=== PATIENT | female | born 1955 | race Caucasian/White ===

== ENCOUNTER 2019-03-04 16:53 | Inpatient (IN) | payer BC, OTHER ==
[~2019-03-04] VITALS: Ht 170.2 cm; Wt 79.2 kg
--- NOTE | 2019-03-04 17:54 | NUR ---
PT HERE [facility] C/O LEFT KNEE PAIN AND SWELLING S/P FALL OFF LADDER AT 1400. PT STATES SHE "ALREADY HAS BAD KNEES AND THE LEFT ONE GAVE OUT WHEN I FELL." PT AAO X 44, NAD, ROOM AIR, CALL LIGHT WITHIN REACH. PT DRESSED IN GOWN AND ATTACHED TO MONITOR AND FAMILY AT BEDSIDE. LEFT KNEE SWOLLEN AND TENDER TO PALPATION. PEDAL PULSE ON LEFT FOOD PALPABLE AND MARKED.
[2019-03-04] MEDS ORDERED: ONDANSETRON 2MG/ML, 2ML IVPush ONE (18:00)
[2019-03-04] MEDS ORDERED: SODIUM CHLORIDE FLUSH 10ML SYR IVF ONE (18:00)
--- NOTE | 2019-03-04 18:01 | NUR ---
PIV ESTABLISHED BY THIS RN.
[2019-03-04] MEDS ORDERED: ONDANSETRON 2MG/ML, 2ML ONE ×2 (18:04→22:07)
[2019-03-04] MEDS ORDERED: MORPHINE SULFATE 4 MG/ML, 1ML ONE ×2 (18:04→20:06)
--- NOTE | 2019-03-04 18:06 | NUR ---
PT TO RADIOLOGY.
[2019-03-04] MEDS: MORPHINE SULFATE 4 MG/ML, 1ML IVPush PRN ×2 (18:30→20:08)
--- NOTE | 2019-03-04 18:31 | NUR ---
PT BACK FROM RADIOLOGY. PT MEDICATED PER ORDERS.
--- NOTE | 2019-03-04 18:37 | NUR ---
ALL RESULTS BACK AT THIS TIME, CHART UP FOR RECHECK.
--- NOTE | 2019-03-04 18:45 | NUR ---
AT BEDSIDE TO DISCUSS POC.
--- NOTE | 2019-03-04 19:29 | NUR ---
PT TO CT.
[2019-03-04] MEDS ORDERED: SODIUM CHLORIDE FLUSH 10ML SYR IVF PRN (19:30)
[2019-03-04] MEDS ORDERED: ONDANSETRON 2MG/ML, 2ML IVPush PRN ×2 (19:30→21:00)
[2019-03-04] MEDS ORDERED: MORPHINE SULFATE 4 MG/ML, 1ML IVPush PRN (19:30)
[2019-03-04 19:37] LABS: BASOPHILS # (AUTO) 0.04 x10^3/uL (0-0.1); BASOPHILS % (AUTO) 0 % (0-1); EOSINOPHILS # (AUTO) 0.12 x10^3/uL (0-0.4); EOSINOPHILS % (AUTO) 1 % (1-7); LYMPHOCYTES # (AUTO) 2.16 x10^3/uL (1-3.4); LYMPHOCYTES % (AUTO) 15 % (22-44); MD NO; MEAN CORPUSCULAR HEMOGLOBIN 33.4 pg (27.0-34.8); MEAN CORPUSCULAR HGB CONC 33.2 g/dL (32.4-35.8); MEAN CORPUSCULAR VOLUME 100.6 fL (80-100); MEAN PLATELET VOLUME 8.4 fL (7.4-10.4); MONOCYTES # (AUTO) 0.61 x10^3/uL (0.2-0.8); MONOCYTES % (AUTO) 4 % (2-9); NEUTROPHILS # (AUTO) 11.75 x10^3/uL (1.8-6.8); NEUTROPHILS % (AUTO) 80 % (42-75); PLATELET COUNT 232 x10^3/uL (130-400); RED BLOOD COUNT 3.79 x10^6/uL (3.82-5.3); RED CELL DISTRIBUTION WIDTH 12.9 % (9.6-15.2)
--- NOTE | 2019-03-04 19:39 | NUR ---
PT BACK FROM CT. GIVEN WATER PER MD ORDER.
[2019-03-04 19:48] LABS: ALANINE AMINOTRANSFERASE 17 U/L (12-78); ALBUMIN 3.8 g/dL (3.4-5.0); ANION GAP 3 mmol/L (5-15); CALCIUM 8.8 mg/dL (8.5-10.1); CHLORIDE 108 mmol/L (98-107); CREATININE 0.69 mg/dL (0.55-1.02)
[2019-03-04 19:50] LABS: ALKALINE PHOSPHATASE 78 U/L (45-117); BILIRUBIN,TOTAL 0.3 mg/dL (0.2-1.0); TOTAL PROTEIN 7.5 g/dL (6.4-8.2)
--- NOTE | 2019-03-04 19:50 | NUR ---
REPORT GIVEN TO NEVAEH BOLDEN. PT TO TRANSFER TO INPATIENT STATUS.
--- NOTE | 2019-03-04 19:51 | NUR ---
[facility] AT BEDSIDE.
--- NOTE | 2019-03-04 19:55 | NUR ---
PT PLACED IN KNEE IMMOBILIZER PER ORDER.
--- NOTE | 2019-03-04 20:08 | NUR ---
PT MEDICATED PER ORDERS.
--- NOTE | 2019-03-04 20:13 | NUR ---
PT'S SON JANA, NUMBER .
--- NOTE | 2019-03-04 20:15 | NUR ---
PER [facility], POSSIBLE SURGERY TONIGHT.
[2019-03-04 20:50] VITALS: BP 151/76
[2019-03-04] MEDS ORDERED: TEMAZEPAM 15 MG CAPSULE PO PRN (21:00)
[2019-03-04] MEDS ORDERED: DOCUSATE 100 MG CAPSULE PO PRN (21:00)
[2019-03-04] MEDS ORDERED: ACETAMINOPHEN 325 MG TABLET PO PRN ×2 (21:00→22:30)
[2019-03-04] MEDS: NICOTINE 21 MG/24 HR PATCH.TD24 TD SCH (21:00)
[2019-03-04] MEDS ORDERED: ENALAPRILAT 1.25 MG/ML, 2ML IVPush PRN (21:00)
[2019-03-04] MEDS ORDERED: POTASSIUM CHLORIDE 20 MEQ TAB.ER.PRT PO ONE (21:30)
[2019-03-04] MEDS ORDERED: NEOSTIGMINE 1 MG/ML, 10ML ONE (22:07)
[2019-03-04] MEDS ORDERED: SUCCINYLCHOLINE 20 MG/ML, 10ML ONE ×2 (22:07)
[2019-03-04] MEDS ORDERED: GLYCOPYRROLATE 0.2MG/1ML, 5ML ONE (22:07)
[2019-03-04] MEDS ORDERED: CEFAZOLIN 1,000 MG ONE (22:07)
[2019-03-04] MEDS ORDERED: FENTANYL PF 100 MCG/2ML ONE ×3 (22:07→23:42)
[2019-03-04] MEDS ORDERED: DEXAMETHASONE 4 MG/ML, 1ML ONE (22:07)
[2019-03-04] MEDS ORDERED: ROCURONIUM 10MG/ML,5ML ONE (22:07)
[2019-03-04] MEDS ORDERED: PROPOFOL 10 MG/ML, 20ML ONE ×3 (22:07→23:22)
[2019-03-04] MEDS ORDERED: MIDAZOLAM 1 MG/ML, 2ML ONE (22:07)
[2019-03-04] MEDS ORDERED: LIDOCAINE-MPF 2% ,5ML ONE (22:07)
[2019-03-04] MEDS ORDERED: LIDOCAINE GEL 2%, 5ML ONE (22:14)
[2019-03-04] MEDS ORDERED: PROMETHAZINE 25 MG/ML, 1ML IV PRN (22:30)
[2019-03-04] MEDS ORDERED: ONDANSETRON 2MG/ML, 2ML IV PRN (22:30)
[2019-03-04] MEDS ORDERED: EPHEDRINE 50 MG/ML, 1ML IVPush PRN (22:30)
[2019-03-04] MEDS ORDERED: HYDROcodone/APAP 7.5-325MG/15ML UDC PO PRN (22:30)
[2019-03-04] MEDS ORDERED: hydrALAzine 20 MG/ML, 1ML IV PRN (22:30)
[2019-03-04] MEDS ORDERED: LABETALOL 5MG/ML, 20ML IV PRN (22:30)
[2019-03-04] MEDS ORDERED: MEPERIDINE/PF 25MG/ML,1ML IVPush PRN (22:30)
[2019-03-04] MEDS ORDERED: KETOROLAC 30 MG/1 ML ONE (22:31)
[2019-03-04] MEDS ORDERED: CLINDAMYCIN 150 MG/ML, 6ML ONE (22:37)
[2019-03-04] MEDS ORDERED: HYDROmorphone 1 MG/ML, 1ML VIAL ONE (23:42)
[2019-03-04] MEDS ORDERED: OXYcodone 5 MG/5 ML ORAL.SOL UDC ONE (23:42)
[2019-03-04] MEDS: FENTANYL PF 100 MCG/2ML IV PRN (23:46)
[2019-03-05] MEDS: FENTANYL PF 100 MCG/2ML IV PRN (00:01)
[2019-03-05] MEDS: HYDROmorphone 2 MG/ML, 1ML IVPush PRN ×2 (00:01→00:12)
[2019-03-05] MEDS ORDERED: OXYcodone 5 MG/5 ML ORAL.SOL UDC PO PRN (00:30)
[2019-03-05 01:05] VITALS: BP 136/83
[2019-03-05] MEDS: HYDROcodone/APAP 5/325 TABLET PO PRN ×5 (03:55→21:08)
[2019-03-05 04:00] VITALS: BP 132/74
[2019-03-05] MEDS ORDERED: POTASSIUM CHLORIDE 20 MEQ TAB.ER.PRT ONE (06:07)
[2019-03-05] MEDS: CLINDAMYCIN PMX 600MG/50ML 50 ML IVPB SCH ×3 (06:09→22:05)
[2019-03-05] MEDS: ENOXAPARIN 40 MG/0.4 ML SQ SCH (06:10)
[2019-03-05 06:16] LABS: CALCIUM 8.5 mg/dL (8.5-10.1); CHLORIDE 107 mmol/L (98-107)
[2019-03-05 06:20] LABS: ANION GAP 2 mmol/L (5-15); CREATININE 0.66 mg/dL (0.55-1.02)
[2019-03-05 06:26] LABS: BASOPHILS # (AUTO) 0.01 x10^3/uL (0-0.1); BASOPHILS % (AUTO) 0 % (0-1); EOSINOPHILS % (AUTO) 0 % (1-7); LYMPHOCYTES # (AUTO) 0.46 x10^3/uL (1-3.4); LYMPHOCYTES % (AUTO) 5 % (22-44); MD NO; MEAN CORPUSCULAR HEMOGLOBIN 34.4 pg (27.0-34.8); MEAN CORPUSCULAR VOLUME 101.2 fL (80-100); MONOCYTES # (AUTO) 0.14 x10^3/uL (0.2-0.8); MONOCYTES % (AUTO) 1 % (2-9); NEUTROPHILS # (AUTO) 9.21 x10^3/uL (1.8-6.8); NEUTROPHILS % (AUTO) 94 % (42-75); PLATELET COUNT 185 x10^3/uL (130-400); RED BLOOD COUNT 3.28 x10^6/uL (3.82-5.3); RED CELL DISTRIBUTION WIDTH 13.2 % (9.6-15.2)
[2019-03-05 07:06] VITALS: BP 116/73
[2019-03-05] MEDS ORDERED: SENNA/DOCUSATE TABLET PO PRN (12:30)
[2019-03-05] MEDS ORDERED: POLYETHYLENE GLYCOL 17 GM PACKET PO PRN (12:30)
[2019-03-05] MEDS: VENLAFAXINE 75 MG CAP ER PO SCH (12:58)
[2019-03-05 13:21] VITALS: BP 157/77
[2019-03-05 19:36] VITALS: BP 143/76
[2019-03-05] MEDS: NICOTINE 21 MG/24 HR PATCH.TD24 TD SCH (21:00)
[2019-03-06 02:08] VITALS: BP 154/74
[2019-03-06] MEDS: morphine SULFATE 10 MG/ML, 1ML IVPush PRN (02:56)
[2019-03-06] MEDS: ENOXAPARIN 40 MG/0.4 ML SQ SCH (06:00)
[2019-03-06 06:13] LABS: CHLORIDE 107 mmol/L (98-107)
[2019-03-06 06:24] LABS: BASOPHILS # (AUTO) 0.03 x10^3/uL (0-0.1); BASOPHILS % (AUTO) 0 % (0-1); EOSINOPHILS # (AUTO) 0.03 x10^3/uL (0-0.4); EOSINOPHILS % (AUTO) 0 % (1-7); LYMPHOCYTES # (AUTO) 2.66 x10^3/uL (1-3.4); LYMPHOCYTES % (AUTO) 31 % (22-44); MD NO; MEAN CORPUSCULAR HEMOGLOBIN 34.4 pg (27.0-34.8); MEAN CORPUSCULAR HGB CONC 33.5 g/dL (32.4-35.8); MEAN CORPUSCULAR VOLUME 102.7 fL (80-100); MEAN PLATELET VOLUME 9.1 fL (7.4-10.4); MONOCYTES # (AUTO) 0.57 x10^3/uL (0.2-0.8); MONOCYTES % (AUTO) 7 % (2-9); NEUTROPHILS # (AUTO) 5.33 x10^3/uL (1.8-6.8); NEUTROPHILS % (AUTO) 62 % (42-75); PLATELET COUNT 168 x10^3/uL (130-400); RED BLOOD COUNT 2.88 x10^6/uL (3.82-5.3); RED CELL DISTRIBUTION WIDTH 13.1 % (9.6-15.2)
[2019-03-06 06:26] LABS: ANION GAP 5 mmol/L (5-15); CALCIUM 8.7 mg/dL (8.5-10.1); CREATININE 0.56 mg/dL (0.55-1.02)
[2019-03-06 06:57] VITALS: BP 158/77
[2019-03-06] MEDS: LISINOPRIL 20 MG TABLET PO SCH (09:00)
[2019-03-06] MEDS: VENLAFAXINE 75 MG CAP ER PO SCH (09:00)
[2019-03-06] MEDS: AMLODIPINE 5 MG TABLET PO SCH (09:00)
[2019-03-06] MEDS ORDERED: MIDAZOLAM 1 MG/ML, 2ML ONE (09:26)
[2019-03-06] MEDS ORDERED: FENTANYL PF 100 MCG/2ML ONE ×3 (09:26→11:04)
[2019-03-06] MEDS ORDERED: CLINDAMYCIN 150 MG/ML, 6ML ONE (10:18)
[2019-03-06] MEDS ORDERED: PROMETHAZINE 25 MG/ML, 1ML IV PRN (10:30)
[2019-03-06] MEDS ORDERED: MEPERIDINE/PF 25MG/0.5ML IVPush PRN (10:30)
[2019-03-06] MEDS ORDERED: KETOROLAC 30 MG/1 ML IV PRN (10:30)
[2019-03-06] MEDS ORDERED: LABETALOL 5MG/ML, 20ML IV PRN (10:30)
[2019-03-06] MEDS ORDERED: DIAZEPAM 5 MG/ML, 2ML IVPush PRN (10:30)
[2019-03-06] MEDS ORDERED: hydrALAzine 20 MG/ML, 1ML IV PRN (10:30)
[2019-03-06] MEDS ORDERED: HYDROmorphone 2 MG/ML, 1ML IVPush PRN (10:30)
[2019-03-06] MEDS ORDERED: ALBUTEROL SULFATE 2.5 MG/3 ML NPPB PRN (10:30)
[2019-03-06] MEDS ORDERED: OXYcodone 5 MG/5 ML ORAL.SOL UDC PO PRN ×2 (10:30→11:00)
[2019-03-06] MEDS ORDERED: ACETAMINOPHEN 325 MG TABLET PO PRN (10:30)
[2019-03-06] MEDS ORDERED: CEFAZOLIN 1,000 MG ONE (11:00)
[2019-03-06] MEDS ORDERED: ONDANSETRON 2MG/ML, 2ML ONE (11:00)
[2019-03-06] MEDS ORDERED: DEXAMETHASONE 4 MG/ML, 1ML ONE (11:00)
[2019-03-06] MEDS ORDERED: PROPOFOL 10 MG/ML, 20ML ONE (11:00)
[2019-03-06] MEDS ORDERED: OXYcodone 5 MG/5 ML ORAL.SOL UDC ONE (11:04)
[2019-03-06] MEDS: FENTANYL PF 100 MCG/2ML IV PRN ×2 (11:11→11:19)
[2019-03-06] MEDS ORDERED: KETOROLAC 30 MG/1 ML ONE (11:55)
[2019-03-06] MEDS ORDERED: KETOROLAC 30 MG/1 ML IVPush ONE (12:00)
[2019-03-06] MEDS: POTASSIUM CHLORIDE 20 MEQ TAB.ER.PRT PO SCH ×2 (12:41→17:39)
[2019-03-06 13:25] VITALS: BP 111/73
[2019-03-06] MEDS: CLINDAMYCIN PMX 900MG/50ML 50 ML IVPB SCH (18:02)
[2019-03-06 19:46] VITALS: BP 128/74
[2019-03-06] MEDS: NICOTINE 21 MG/24 HR PATCH.TD24 TD SCH (21:00)
[2019-03-06] MEDS: HYDROcodone/APAP 5/325 TABLET PO PRN (21:22)
[2019-03-07 01:47] VITALS: BP 150/77
[2019-03-07 01:49] LABS: MICROSCOPIC AUTO
[2019-03-07 01:50] LABS: CULTURE INDICATED? YES
[2019-03-07] MEDS: CLINDAMYCIN PMX 900MG/50ML 50 ML IVPB SCH ×2 (02:14→09:48)
[2019-03-07 05:34] LABS: BASOPHILS # (AUTO) 0.03 x10^3/uL (0-0.1); BASOPHILS % (AUTO) 0 % (0-1); EOSINOPHILS # (AUTO) 0.11 x10^3/uL (0-0.4); EOSINOPHILS % (AUTO) 1 % (1-7); LYMPHOCYTES % (AUTO) 25 % (22-44); MD NO; MEAN CORPUSCULAR HEMOGLOBIN 34.5 pg (27.0-34.8); MEAN CORPUSCULAR HGB CONC 33.1 g/dL (32.4-35.8); MEAN CORPUSCULAR VOLUME 104.2 fL (80-100); MEAN PLATELET VOLUME 9.2 fL (7.4-10.4); MONOCYTES # (AUTO) 0.53 x10^3/uL (0.2-0.8); MONOCYTES % (AUTO) 6 % (2-9); NEUTROPHILS # (AUTO) 6.14 x10^3/uL (1.8-6.8); NEUTROPHILS % (AUTO) 67 % (42-75); PLATELET COUNT 172 x10^3/uL (130-400); RED BLOOD COUNT 2.91 x10^6/uL (3.82-5.3); RED CELL DISTRIBUTION WIDTH 12.8 % (9.6-15.2)
[2019-03-07 05:46] LABS: ANION GAP 4 mmol/L (5-15); CALCIUM 8.8 mg/dL (8.5-10.1); CHLORIDE 108 mmol/L (98-107)
[2019-03-07 05:47] LABS: CREATININE 0.59 mg/dL (0.55-1.02)
[2019-03-07] MEDS: ENOXAPARIN 40 MG/0.4 ML SQ SCH (06:00)
[2019-03-07] MEDS: LISINOPRIL 20 MG TABLET PO SCH (08:11)
[2019-03-07] MEDS: POTASSIUM CHLORIDE 20 MEQ TAB.ER.PRT PO SCH ×2 (08:11→17:11)
[2019-03-07] MEDS: AMLODIPINE 5 MG TABLET PO SCH (08:11)
[2019-03-07] MEDS: VENLAFAXINE 75 MG CAP ER PO SCH (08:11)
[2019-03-07 09:20] VITALS: BP 155/77
[2019-03-07] MEDS: HYDROcodone/APAP 5/325 TABLET PO PRN ×4 (09:48→22:10)
[2019-03-07] MEDS ORDERED: ENOXAPARIN 40 MG/0.4 ML SQ ONE (12:21)
[2019-03-07 15:05] VITALS: BP 115/72
[2019-03-07] MEDS ORDERED: CHOLECALCIFEROL 400 UNITS/ML ORAL SOL PO SCH (16:30)
[2019-03-07] MEDS: ASCORBIC ACID 500 MG TABLET PO SCH (17:11)
[2019-03-07 19:19] VITALS: BP 135/61
[2019-03-07] MEDS: NICOTINE 21 MG/24 HR PATCH.TD24 TD SCH (20:54)
[2019-03-08 00:48] VITALS: BP 132/69
[2019-03-08 05:46] LABS: BASOPHILS # (AUTO) 0.03 x10^3/uL (0-0.1); BASOPHILS % (AUTO) 1 % (0-1); EOSINOPHILS # (AUTO) 0.21 x10^3/uL (0-0.4); EOSINOPHILS % (AUTO) 3 % (1-7); LYMPHOCYTES % (AUTO) 36 % (22-44); MD NO; MEAN CORPUSCULAR HEMOGLOBIN 34.5 pg (27.0-34.8); MEAN CORPUSCULAR HGB CONC 33.3 g/dL (32.4-35.8); MEAN CORPUSCULAR VOLUME 103.5 fL (80-100); MEAN PLATELET VOLUME 9.1 fL (7.4-10.4); MONOCYTES # (AUTO) 0.51 x10^3/uL (0.2-0.8); MONOCYTES % (AUTO) 7 % (2-9); NEUTROPHILS # (AUTO) 3.78 x10^3/uL (1.8-6.8); NEUTROPHILS % (AUTO) 53 % (42-75); PLATELET COUNT 216 x10^3/uL (130-400); RED BLOOD COUNT 3.21 x10^6/uL (3.82-5.3)
[2019-03-08 05:48] LABS: CHLORIDE 107 mmol/L (98-107)
[2019-03-08 05:54] LABS: ALBUMIN 3.4 g/dL (3.4-5.0); ANION GAP 5 mmol/L (5-15); CREATININE 0.59 mg/dL (0.55-1.02)
[2019-03-08 08:25] VITALS: BP 159/86
[2019-03-08] MEDS: MULTIVITS,STRESS FORMULA 1 TABLET PO SCH (08:38)
[2019-03-08] MEDS: AMLODIPINE 5 MG TABLET PO SCH (08:38)
[2019-03-08] MEDS: ASCORBIC ACID 500 MG TABLET PO SCH ×2 (08:38→16:10)
[2019-03-08] MEDS: HYDROcodone/APAP 5/325 TABLET PO PRN ×2 (08:38→19:38)
[2019-03-08] MEDS: LISINOPRIL 20 MG TABLET PO SCH (08:39)
[2019-03-08] MEDS: VENLAFAXINE 75 MG CAP ER PO SCH (08:39)
[2019-03-08] MEDS ORDERED: ENOXAPARIN 40 MG/0.4 ML SQ ONE (09:00)
[2019-03-08 12:27] VITALS: BP 131/74
[2019-03-08] MEDS: CHOLECALCIFEROL 400 UNITS TABLET PO SCH (16:10)
[2019-03-08 19:17] VITALS: BP 156/85
[2019-03-08] MEDS: NICOTINE 21 MG/24 HR PATCH.TD24 TD SCH (21:00)
[2019-03-09 01:06] VITALS: BP 133/85
[2019-03-09 05:33] LABS: BASOPHILS # (AUTO) 0.04 x10^3/uL (0-0.1); BASOPHILS % (AUTO) 1 % (0-1); EOSINOPHILS % (AUTO) 4 % (1-7); LYMPHOCYTES # (AUTO) 2.13 x10^3/uL (1-3.4); LYMPHOCYTES % (AUTO) 27 % (22-44); MD NO; MEAN CORPUSCULAR HEMOGLOBIN 34.8 pg (27.0-34.8); MEAN CORPUSCULAR HGB CONC 33.8 g/dL (32.4-35.8); MEAN CORPUSCULAR VOLUME 102.9 fL (80-100); MEAN PLATELET VOLUME 8.5 fL (7.4-10.4); MONOCYTES # (AUTO) 0.58 x10^3/uL (0.2-0.8); MONOCYTES % (AUTO) 7 % (2-9); NEUTROPHILS # (AUTO) 4.97 x10^3/uL (1.8-6.8); NEUTROPHILS % (AUTO) 62 % (42-75); PLATELET COUNT 263 x10^3/uL (130-400); RED BLOOD COUNT 3.49 x10^6/uL (3.82-5.3); RED CELL DISTRIBUTION WIDTH 12.8 % (9.6-15.2)
[2019-03-09 05:45] LABS: ALBUMIN 3.4 g/dL (3.4-5.0); ANION GAP 5 mmol/L (5-15); CALCIUM 9.3 mg/dL (8.5-10.1); CHLORIDE 106 mmol/L (98-107); CREATININE 0.69 mg/dL (0.55-1.02)
[2019-03-09] MEDS: HYDROcodone/APAP 5/325 TABLET PO PRN ×3 (05:56→16:50)
[2019-03-09 07:30] VITALS: BP 131/80
[2019-03-09] MEDS: ASCORBIC ACID 500 MG TABLET PO SCH ×2 (08:00→16:49)
[2019-03-09] MEDS: LISINOPRIL 20 MG TABLET PO SCH ×2 (08:07→16:49)
[2019-03-09] MEDS: VENLAFAXINE 75 MG CAP ER PO SCH (08:08)
[2019-03-09] MEDS: AMLODIPINE 5 MG TABLET PO SCH ×2 (08:08→16:50)
[2019-03-09] MEDS: MULTIVITS,STRESS FORMULA 1 TABLET PO SCH (08:09)
[2019-03-09] MEDS ORDERED: FENTANYL PF 100 MCG/2ML ONE (09:29)
[2019-03-09] MEDS ORDERED: CLINDAMYCIN 150 MG/ML, 6ML ONE (11:08)
[2019-03-09] MEDS ORDERED: ONDANSETRON 2MG/ML, 2ML ONE (11:19)
[2019-03-09] MEDS ORDERED: PROPOFOL 10 MG/ML, 20ML ONE (11:19)
[2019-03-09] MEDS ORDERED: DEXAMETHASONE 4 MG/ML, 1ML ONE (11:19)
[2019-03-09] MEDS ORDERED: LIDOCAINE-MPF 2% ,5ML ONE (11:19)
[2019-03-09] MEDS ORDERED: PROMETHAZINE 25 MG/ML, 1ML IV PRN (11:30)
[2019-03-09] MEDS ORDERED: hydrALAzine 20 MG/ML, 1ML IV PRN (11:30)
[2019-03-09] MEDS ORDERED: MEPERIDINE/PF 25MG/ML,1ML IVPush PRN (11:30)
[2019-03-09] MEDS ORDERED: METOPROLOL 1 MG/ML, 5ML IV PRN (11:30)
[2019-03-09] MEDS ORDERED: ALBUTEROL/IPRATROPIUM 2.5MG/0.5MG, 3 ML NPPB PRN (11:30)
[2019-03-09] MEDS ORDERED: FENTANYL PF 100 MCG/2ML IV PRN (11:30)
[2019-03-09] MEDS ORDERED: HYDROmorphone 2 MG/ML, 1ML IVPush PRN (11:30)
[2019-03-09] MEDS ORDERED: HYDROcodone/APAP 7.5-325MG/15ML UDC PO PRN (11:30)
[2019-03-09] MEDS ORDERED: MIDAZOLAM 1 MG/ML, 2ML IV PRN (11:30)
[2019-03-09] MEDS: CLINDAMYCIN PMX 900MG/50ML 50 ML IVPB SCH ×2 (12:00→20:17)
[2019-03-09 13:00] VITALS: BP 145/69
[2019-03-09] MEDS: CHOLECALCIFEROL 400 UNITS TABLET PO SCH (16:49)
[2019-03-09 20:03] VITALS: BP 136/84
[2019-03-09] MEDS: NICOTINE 21 MG/24 HR PATCH.TD24 TD SCH (20:18)
[2019-03-10] MEDS: HYDROcodone/APAP 5/325 TABLET PO PRN ×2 (00:14→21:11)
[2019-03-10 00:41] VITALS: BP 151/94
[2019-03-10] MEDS: CLINDAMYCIN PMX 900MG/50ML 50 ML IVPB SCH (04:37)
[2019-03-10 07:54] VITALS: BP 149/85
[2019-03-10] MEDS: ASCORBIC ACID 500 MG TABLET PO SCH ×2 (09:14→16:36)
[2019-03-10] MEDS: VENLAFAXINE 75 MG CAP ER PO SCH (09:16)
[2019-03-10] MEDS: MULTIVITS,STRESS FORMULA 1 TABLET PO SCH (09:16)
[2019-03-10 12:20] VITALS: BP 154/67
[2019-03-10] MEDS: CHOLECALCIFEROL 400 UNITS TABLET PO SCH (16:35)
[2019-03-10 18:47] VITALS: BP 158/88
[2019-03-10] MEDS: SENNA/DOCUSATE TABLET PO SCH (21:00)
[2019-03-10] MEDS: NICOTINE 21 MG/24 HR PATCH.TD24 TD SCH (21:00)
[2019-03-11 02:19] VITALS: BP 138/83
[2019-03-11] MEDS: HYDROcodone/APAP 5/325 TABLET PO PRN ×4 (02:56→21:27)
[2019-03-11 07:16] VITALS: BP 128/82
[2019-03-11] MEDS: POLYETHYLENE GLYCOL 17 GM PACKET NG SCH (10:23)
[2019-03-11] MEDS: ASCORBIC ACID 500 MG TABLET PO SCH ×2 (10:24→18:38)
[2019-03-11] MEDS: VENLAFAXINE 75 MG CAP ER PO SCH (10:25)
[2019-03-11] MEDS: LISINOPRIL 20 MG TABLET PO SCH (10:25)
[2019-03-11] MEDS: SENNA/DOCUSATE TABLET PO SCH (10:25)
[2019-03-11] MEDS: AMLODIPINE 5 MG TABLET PO SCH (10:25)
[2019-03-11] MEDS: MULTIVITS,STRESS FORMULA 1 TABLET PO SCH (10:26)
[2019-03-11 13:57] VITALS: BP 136/78
[2019-03-11] MEDS: CHOLECALCIFEROL 400 UNITS TABLET PO SCH (15:03)
[2019-03-11 19:33] VITALS: BP 150/79
[2019-03-11] MEDS: NICOTINE 21 MG/24 HR PATCH.TD24 TD SCH (21:00)
[2019-03-12 03:10] VITALS: BP 122/68
[2019-03-12 06:04] LABS: BASOPHILS # (AUTO) 0.04 x10^3/uL (0-0.1); BASOPHILS % (AUTO) 0 % (0-1); EOSINOPHILS # (AUTO) 0.26 x10^3/uL (0-0.4); EOSINOPHILS % (AUTO) 3 % (1-7); LYMPHOCYTES # (AUTO) 2.25 x10^3/uL (1-3.4); LYMPHOCYTES % (AUTO) 22 % (22-44); MD NO; MEAN CORPUSCULAR HEMOGLOBIN 34.5 pg (27.0-34.8); MEAN CORPUSCULAR HGB CONC 33.3 g/dL (32.4-35.8); MEAN CORPUSCULAR VOLUME 103.5 fL (80-100); MEAN PLATELET VOLUME 8.9 fL (7.4-10.4); MONOCYTES # (AUTO) 0.99 x10^3/uL (0.2-0.8); MONOCYTES % (AUTO) 10 % (2-9); NEUTROPHILS # (AUTO) 6.83 x10^3/uL (1.8-6.8); NEUTROPHILS % (AUTO) 66 % (42-75); PLATELET COUNT 279 x10^3/uL (130-400); RED BLOOD COUNT 3.29 x10^6/uL (3.82-5.3); RED CELL DISTRIBUTION WIDTH 13.3 % (9.6-15.2)
[2019-03-12 06:05] LABS: ANION GAP 8 mmol/L (5-15); CALCIUM 9.3 mg/dL (8.5-10.1); CHLORIDE 107 mmol/L (98-107); CREATININE 0.67 mg/dL (0.55-1.02)
[2019-03-12 06:57] VITALS: BP 137/52
[2019-03-12] MEDS: HYDROcodone/APAP 5/325 TABLET PO PRN ×4 (07:07→21:25)
[2019-03-12] MEDS ORDERED: ENOXAPARIN 40 MG/0.4 ML ONE (11:09)
[2019-03-12 11:13] VITALS: BP 135/82
[2019-03-12] MEDS: POLYETHYLENE GLYCOL 17 GM PACKET NG SCH (11:20)
[2019-03-12] MEDS: SENNA/DOCUSATE TABLET PO SCH (11:20)
[2019-03-12] MEDS: VENLAFAXINE 75 MG CAP ER PO SCH (11:20)
[2019-03-12] MEDS: LISINOPRIL 20 MG TABLET PO SCH (11:21)
[2019-03-12] MEDS: ASCORBIC ACID 500 MG TABLET PO SCH ×2 (11:21→16:41)
[2019-03-12] MEDS: MULTIVITS,STRESS FORMULA 1 TABLET PO SCH (11:21)
[2019-03-12] MEDS: AMLODIPINE 5 MG TABLET PO SCH (11:21)
[2019-03-12] MEDS ORDERED: ENOXAPARIN 40 MG/0.4 ML SQ ONE (11:30)
[2019-03-12 12:40] VITALS: BP 145/81
[2019-03-12] MEDS: CHOLECALCIFEROL 400 UNITS TABLET PO SCH (16:41)
[2019-03-12 18:56] VITALS: BP 147/76
[2019-03-12] MEDS: NICOTINE 21 MG/24 HR PATCH.TD24 TD SCH (19:15)
[2019-03-13 02:19] VITALS: BP 108/69
[2019-03-13] MEDS: ASCORBIC ACID 500 MG TABLET PO SCH ×2 (08:00→17:00)
[2019-03-13 08:07] VITALS: BP 118/81
[2019-03-13] MEDS: POLYETHYLENE GLYCOL 17 GM PACKET NG SCH (08:18)
[2019-03-13] MEDS: LISINOPRIL 20 MG TABLET PO SCH (08:19)
[2019-03-13] MEDS: SENNA/DOCUSATE TABLET PO SCH (08:19)
[2019-03-13] MEDS: MULTIVITS,STRESS FORMULA 1 TABLET PO SCH (08:19)
[2019-03-13] MEDS: AMLODIPINE 5 MG TABLET PO SCH (08:19)
[2019-03-13] MEDS: VENLAFAXINE 75 MG CAP ER PO SCH (08:19)
[2019-03-13] MEDS ORDERED: MIDAZOLAM 1 MG/ML, 2ML ONE (11:30)
[2019-03-13] MEDS ORDERED: FENTANYL PF 250 MCG/5ML ONE (11:31)
[2019-03-13] MEDS ORDERED: BUPIVACAINE/PF 0.5% ONE (11:55)
[2019-03-13] MEDS ORDERED: EPINEPHRINE 1 MG/ML, 1ML ONE (11:55)
[2019-03-13] MEDS ORDERED: BUPIVACAINE/PF 0.25% ONE (11:55)
[2019-03-13] MEDS ORDERED: ROCURONIUM 10 MG/ML,10ML ONE (12:02)
[2019-03-13] MEDS ORDERED: PROPOFOL 10 MG/ML, 20ML ONE (12:02)
[2019-03-13] MEDS ORDERED: SUGAMMADEX 200 MG/2 ML IVPush ONE (12:02)
[2019-03-13] MEDS ORDERED: PHENYLEPHRINE 10 MG/ML ONE (12:02)
[2019-03-13] MEDS ORDERED: ONDANSETRON 2MG/ML, 2ML ONE (12:02)
[2019-03-13] MEDS ORDERED: DEXMEDETOMIDINE 200 MCG/2 ML ONE (12:02)
[2019-03-13] MEDS ORDERED: KETOROLAC 30 MG/1 ML ONE (12:02)
[2019-03-13] MEDS ORDERED: CLINDAMYCIN 150 MG/ML, 6ML ONE (12:22)
[2019-03-13] MEDS ORDERED: TOBRAMYCIN SULFATE 1.2 GM IMP ONE (13:13)
[2019-03-13] MEDS ORDERED: MEPERIDINE/PF 100 MG/ML ONE (13:14)
[2019-03-13] MEDS ORDERED: VANCOMYCIN 1,000 MG ONE (13:14)
[2019-03-13] MEDS ORDERED: FENTANYL PF 100 MCG/2ML ONE ×2 (15:02→15:09)
[2019-03-13] MEDS ORDERED: OXYcodone 5 MG/5 ML ORAL.SOL UDC ONE (15:09)
[2019-03-13] MEDS ORDERED: HYDROmorphone 2 MG/ML, 1ML ONE ×2 (15:12→15:55)
[2019-03-13] MEDS: FENTANYL PF 100 MCG/2ML IV PRN ×2 (15:15→15:20)
[2019-03-13] MEDS ORDERED: OXYcodone 5 MG/5 ML ORAL.SOL UDC PO PRN (15:30)
[2019-03-13] MEDS ORDERED: MEPERIDINE/PF 25MG/ML,1ML IVPush PRN (15:30)
[2019-03-13] MEDS ORDERED: METHOCARBAMOL 1,000 MG in DEXTROSE 5% 100 ML IV PRN (15:30)
[2019-03-13] MEDS ORDERED: HYDROmorphone 2 MG/ML, 1ML IVPush PRN (15:30)
[2019-03-13] MEDS ORDERED: ACETAMINOPHEN 325 MG TABLET PO PRN (15:30)
[2019-03-13] MEDS ORDERED: PROMETHAZINE 25 MG/ML, 1ML IV PRN (15:30)
[2019-03-13] MEDS ORDERED: LABETALOL 5MG/ML, 20ML IV PRN (15:30)
[2019-03-13] MEDS: HYDROmorphone 2 MG/ML, 1ML IVPush PRN ×5 (15:33→16:11)
[2019-03-13] MEDS: CHOLECALCIFEROL 400 UNITS TABLET PO SCH (16:30)
[2019-03-13] MEDS ORDERED: ONDANSETRON ODT 4 MG ONE (18:36)
[2019-03-13 19:39] VITALS: BP 144/74
[2019-03-13] MEDS: CLINDAMYCIN PMX 900MG/50ML 50 ML IVPB SCH (20:34)
[2019-03-13] MEDS: NICOTINE 21 MG/24 HR PATCH.TD24 TD SCH (21:00)
[2019-03-13] MEDS: CALCIUM CARBONATE 500 MG TAB.CHEW PO PRN (21:06)
[2019-03-13] MEDS: HYDROcodone/APAP 5/325 TABLET PO PRN (21:06)
[2019-03-13 23:49] VITALS: BP 124/77
[2019-03-14] MEDS: HYDROcodone/APAP 5/325 TABLET PO PRN ×5 (01:47→19:07)
[2019-03-14] MEDS: morphine SULFATE 10 MG/ML, 1ML IVPush PRN ×2 (01:52→04:19)
[2019-03-14] MEDS: CLINDAMYCIN PMX 900MG/50ML 50 ML IVPB SCH ×2 (04:00→12:37)
[2019-03-14 04:01] VITALS: BP 146/76
[2019-03-14 07:50] VITALS: BP 169/84
[2019-03-14 07:52] VITALS: BP 161/53
[2019-03-14] MEDS: POLYETHYLENE GLYCOL 17 GM PACKET NG SCH (08:09)
[2019-03-14] MEDS: LISINOPRIL 20 MG TABLET PO SCH (08:10)
[2019-03-14] MEDS: AMLODIPINE 5 MG TABLET PO SCH (08:10)
[2019-03-14] MEDS: ASCORBIC ACID 500 MG TABLET PO SCH ×2 (08:10→17:19)
[2019-03-14] MEDS: MULTIVITS,STRESS FORMULA 1 TABLET PO SCH (08:10)
[2019-03-14] MEDS: SENNA/DOCUSATE TABLET PO SCH (08:11)
[2019-03-14] MEDS: ENOXAPARIN 40 MG/0.4 ML SQ SCH (08:12)
[2019-03-14] MEDS: VENLAFAXINE 75 MG CAP ER PO SCH (08:12)
[2019-03-14 13:38] VITALS: BP 151/82
[2019-03-14] MEDS ORDERED: OMEPRAZOLE 20 MG CAPSULE.DR ONE (14:00)
[2019-03-14] MEDS: CALCIUM CARBONATE 500 MG TAB.CHEW PO PRN ×2 (14:02→21:14)
[2019-03-14] MEDS: OMEPRAZOLE 20 MG CAPSULE.DR PO SCH (14:02)
[2019-03-14] MEDS: CHOLECALCIFEROL 400 UNITS TABLET PO SCH (17:19)
[2019-03-14 19:39] VITALS: BP 147/80
[2019-03-14] MEDS: NICOTINE 21 MG/24 HR PATCH.TD24 TD SCH (21:00)
[2019-03-15] MEDS: HYDROcodone/APAP 5/325 TABLET PO PRN ×4 (01:23→15:45)
[2019-03-15 02:02] VITALS: BP 149/74
[2019-03-15] MEDS: OMEPRAZOLE 20 MG CAPSULE.DR PO SCH (06:04)
[2019-03-15 08:06] VITALS: BP 138/78
[2019-03-15 08:45] LABS: BASOPHILS # (AUTO) 0.03 x10^3/uL (0-0.1); BASOPHILS % (AUTO) 0 % (0-1); EOSINOPHILS # (AUTO) 0.12 x10^3/uL (0-0.4); EOSINOPHILS % (AUTO) 1 % (1-7); LYMPHOCYTES % (AUTO) 20 % (22-44); MD NO; MEAN CORPUSCULAR HEMOGLOBIN 34.5 pg (27.0-34.8); MEAN CORPUSCULAR HGB CONC 33.2 g/dL (32.4-35.8); MEAN CORPUSCULAR VOLUME 103.8 fL (80-100); MEAN PLATELET VOLUME 8.2 fL (7.4-10.4); MONOCYTES # (AUTO) 0.65 x10^3/uL (0.2-0.8); MONOCYTES % (AUTO) 7 % (2-9); NEUTROPHILS # (AUTO) 6.59 x10^3/uL (1.8-6.8); NEUTROPHILS % (AUTO) 72 % (42-75); PLATELET COUNT 328 x10^3/uL (130-400); RED BLOOD COUNT 2.94 x10^6/uL (3.82-5.3); RED CELL DISTRIBUTION WIDTH 13.5 % (9.6-15.2)
[2019-03-15 08:58] LABS: ANION GAP 6 mmol/L (5-15); CALCIUM 9.5 mg/dL (8.5-10.1); CHLORIDE 106 mmol/L (98-107); CREATININE 0.66 mg/dL (0.55-1.02)
[2019-03-15] MEDS: POLYETHYLENE GLYCOL 17 GM PACKET NG SCH (09:21)
[2019-03-15] MEDS: ENOXAPARIN 40 MG/0.4 ML SQ SCH (09:21)
[2019-03-15] MEDS: SENNA/DOCUSATE TABLET PO SCH (09:21)
[2019-03-15] MEDS: MULTIVITS,STRESS FORMULA 1 TABLET PO SCH (09:22)
[2019-03-15] MEDS: VENLAFAXINE 75 MG CAP ER PO SCH (09:22)
[2019-03-15] MEDS: LISINOPRIL 20 MG TABLET PO SCH (09:22)
[2019-03-15] MEDS: ASCORBIC ACID 500 MG TABLET PO SCH ×2 (09:22→16:58)
[2019-03-15] MEDS: AMLODIPINE 5 MG TABLET PO SCH (09:22)
[2019-03-15 13:03] VITALS: BP 129/70
[2019-03-15] MEDS ORDERED: ASPI325T17 PO (14:34)
[2019-03-15] MEDS ORDERED: VENL75CA6 PO (14:34)
[2019-03-15] MEDS ORDERED: HYDR-3237 PO (14:34)
[2019-03-15] MEDS ORDERED: LISI-170 PO (14:34)
[2019-03-15] MEDS ORDERED: AMLO-150 PO (14:34)
[2019-03-15] MEDS: CHOLECALCIFEROL 400 UNITS TABLET PO SCH (16:30)
== END 2019-03-15 17:15 | disposition home or self-care (01) | DRG 464 ==
LOC: ED 18:38 → 4NE 19:32 → ED 20:58 → 4NE 03-06 09:29 → DCLOUNGE 03-15 16:57
PROVIDERS: ADMIT Internal Medicine; ATTEND Internal Medicine
PROC: 0KNT0ZZ Release Left Lower Leg Muscle, Open Approach (ICD-10-PCS; 2019-03-04)
PROC: 0KNT0ZZ Release Left Lower Leg Muscle, Open Approach (ICD-10-PCS; 2019-03-04)
PROC: 0KNT0ZZ Release Left Lower Leg Muscle, Open Approach (ICD-10-PCS; 2019-03-04)
PROC: 0KNT0ZZ Release Left Lower Leg Muscle, Open Approach (ICD-10-PCS; 2019-03-04)
PROC: 0QHH35Z Insertion of External Fixation Device into Left Tibia, Percutaneous Approach (ICD-10-PCS; 2019-03-04)
PROC: 0JBP0ZZ Excision of Left Lower Leg Subcutaneous Tissue and Fascia, Open Approach (ICD-10-PCS; principal; 2019-03-06 10:00)
PROC: 0KDT0ZZ Extraction of Left Lower Leg Muscle, Open Approach (ICD-10-PCS; 2019-03-09)
PROC: 0QSH04Z Reposition Left Tibia with Internal Fixation Device, Open Approach (ICD-10-PCS; 2019-03-13)
PROC: 0YPBXYZ Removal of Other Device from Left Lower Extremity, External Approach (ICD-10-PCS; 2019-03-13)
DX: S82.142A Displaced bicondylar fracture of left tibia, initial encounter for closed fracture (principal); T79.A22A Traumatic compartment syndrome of left lower extremity, initial encounter; D53.9 Nutritional anemia, unspecified; D63.8 Anemia in other chronic diseases classified elsewhere; D72.829 Elevated white blood cell count, unspecified; D75.89 Other specified diseases of blood and blood-forming organs; E87.6 Hypokalemia; F12.10 Cannabis abuse, uncomplicated; F17.210 Nicotine dependence, cigarettes, uncomplicated; F32.9 Major depressive disorder, single episode, unspecified; I10 Essential (primary) hypertension; K59.00 Constipation, unspecified; S82.453A Displaced comminuted fracture of shaft of unspecified fibula, initial encounter for closed fracture; W11.XXXA Fall on and from ladder, initial encounter; Y93.89 Activity, other specified; Y92.89 Other specified places as the place of occurrence of the external cause; Y99.8 Other external cause status; Z82.3 Family history of stroke; Z82.49 Family history of ischemic heart disease and other diseases of the circulatory system; Z88.1 Allergy status to other antibiotic agents
CPT/HCPCS: 36415; 73560; 73590; 73600; 76000; J3260; J3490; S0020; S0077; 71045; 80048; 80053; 80069; 81001; 83735; 85025; 87086; 93005; C1713; G0378; J0171; J0690; J1100; J1170; J1650; J1885; J2250; J2405; J2704; J2710; J3010; J3370; C1762; J0330; J2175; J2270; J2370; J2800